=== PATIENT | male | born 1980 | race Caucasian/White ===

== ENCOUNTER 2017-09-03 11:21 | Emergency (ER) | payer OTHER ==
[~2017-09-03] VITALS: Ht 185.4 cm; Wt 96.1 kg
[~2017-09-03 11:21] MED LIST: D ME
[2017-09-03 13:44] VITALS: BP 120/80
== END 2017-09-03 13:46 | disposition home or self-care (01) ==
LOC: ED 12:28
DX: J01.10 Acute frontal sinusitis, unspecified (principal); J01.00 Acute maxillary sinusitis, unspecified; F17.210 Nicotine dependence, cigarettes, uncomplicated
CPT/HCPCS: 99283